=== PATIENT | female | born 1970 | race Asian ===

== ENCOUNTER 2019-10-19 06:17 | Inpatient (IN) | payer OTHER ==
[2019-10-15 11:19] VITALS: BMI 46.3
[2019-10-19] MEDS ORDERED: BUPIVACAINE HCL/PF 0.5% (5 MG/ML) 30 ML VIAL IJ ONE (07:11)
[2019-10-19] MEDS ORDERED: MIDAZOLAM HCL 2 MG/2 ML SINGLE DOSE VIAL ONE ×2 (07:11→07:27)
[2019-10-19] MEDS ORDERED: ROCURONIUM BROMIDE 50 MG/5 ML SYRINGE ONE ×2 (07:27→08:13)
[2019-10-19] MEDS ORDERED: KETOROLAC TROMETHAMINE 30 MG/1 ML VIAL ONE (07:27)
[2019-10-19] MEDS ORDERED: fentaNYL CITRATE 250 MCG/5 ML VIAL ONE (07:27)
[2019-10-19] MEDS ORDERED: SUCCINYLCHOLINE CHLORIDE 200 MG/10 ML SYRINGE ONE ×2 (07:27→08:18)
[2019-10-19] MEDS ORDERED: DEXAMETHASONE SOD PHOSPHATE 4 MG/1 ML VIAL ONE (07:27)
[2019-10-19] MEDS ORDERED: GLYCOPYRROLATE 0.2 MG/1 ML VIAL ONE (07:27)
[2019-10-19] MEDS ORDERED: ONDANSETRON 4 MG/2 ML VIAL ONE (07:27)
[2019-10-19] MEDS ORDERED: PROPOFOL 20 ML ONE ×2 (07:27→08:13)
[2019-10-19] MEDS ORDERED: NEOSTIGMINE METHYLSULFATE 0.5 MG/ML - 10 ML MDV ONE ×2 (07:27→09:13)
[2019-10-19] MEDS ORDERED: ceFAZolin SODIUM 1 GM VIAL ONE ×3 (07:28→09:13)
--- NOTE | 2019-10-19 07:55 | HP ---
Admitting History and Physical - Admission Chief Complaint: Morbid obesity History Source: Patient Limitations to Obtaining History: No Limitations - Past Medical History ...LMP Comment: EVERY 6 MONTHS - Smoking History Smoking history: Never smoked Have you smoked in the past 12 months: No - Alcohol/Substance Use Hx Alcohol Use: No - Social History ADL: Independent Home Medications - Allergies Allergies/Adverse Reactions: Allergies Allergy/AdvReac Type Severity Reaction Status Date / Time No Known Allergies Allergy Verified 10/15/19 11:07 - Home Medications Home Medications: Ambulatory Orders Docusate Sodium [Colace -] 100 mg PO TID #90 capsule 10/19/19 Famotidine [Pepcid] 20 mg PO BID #60 tablet 10/19/19 Ondansetron [Zofran -] 8 mg PO TID #30 tablet 10/19/19 Oxycodone HCl/Acetaminophen [Percocet 5-325 mg Tablet] 1 - 2 tab PO Q6H #28 tab MDD 4 10/19/19 Family Medical History Family History: Denies Review of Systems - Review of Systems Constitutional: denies: Chills, Fever HENT: reports: No Symptoms Neck: reports: No Symptoms Cardiovascular: reports: No Symptoms Respiratory: reports: No Symptoms Gastrointestinal: reports: No Symptoms Neurological: reports: No Symptoms Pain Intensity: 0 Physical Examination Vital Signs: Vital Signs Temperature 98.4 F 10/19/19 07:03 Pulse Rate 74 10/19/19 07:03 Respiratory Rate 18 10/19/19 07:03 Blood Pressure 135/80 10/19/19 07:03 O2 Sat by Pulse Oximetry (%) 97 10/19/19 07:05 Constitutional: Yes: Calm Eyes: Yes: WNL HENT: Yes: WNL Cardiovascular: Yes: WNL Respiratory: Yes: WNL Gastrointestinal: Yes: Soft, Abdomen, Obese Neurological: Yes: Alert, Oriented Problem List - Problems (1) Morbid obesity due to excess calories Code(s): E66.01 - MORBID (SEVERE) OBESITY DUE TO EXCESS CALORIES (2) BMI 45.0-49.9, adult Code(s): Z68.42 - BODY MASS INDEX (BMI) 45.0-49.9, ADULT Assessment/Plan Laparoscopic possible open vertical sleeve gastrectomy possible liver biopsy, upper endoscopy
[2019-10-19] MEDS ORDERED: BUPIVACAINE HCL/PF 0.5% (5MG/ML) 10 ML VIAL ONE ×2 (07:57)
[2019-10-19] MEDS ORDERED: BUPIVACAINE HCL/PF 0.5% (5MG/ML) 10 ML VIAL IJ ONE (08:52)
[2019-10-19] MEDS ORDERED: LIDOCAINE HCL 2% 100 MG/5 ML DISP.SYRIN ONE (09:13)
[2019-10-19] MEDS ORDERED: HYDROmorphone HCL CARPU-JECT 1 MG/1 ML DISP.SYRIN IVPB PRN (09:22)
--- NOTE | 2019-10-19 09:24 | OPR ---
Operative Note Operative Date: 10/19/19 Pre-Operative Diagnosis: Morbid obesity; BMI 46 Operation: 1. Diagnostic laparoscopy. 2. Laparoscopic vertical sleeve gastrectomy. 3. Laparoscopic wedge liver biopsy. 4. Laparoscopic oversewing of gastric staple line Post-Operative Diagnosis: Same as Pre-op (as well as hepatomegaly and oozing from gastric staple line) Surgeon: Junior [facility] Occupational Therapist: Wesley Shine Anesthesia: General Specimens Removed: Greater curvature of stomach. Liver biopsy. Estimated Blood Loss (mls): 30 Drains & Tubes with Location: 36 [address] Bougie Operative Report Dictated: Yes
[2019-10-19] MEDS ORDERED: ACETAMINOPHEN 1000 MG/100 ML VIAL (NON FORMULARY) IVPB SCH (09:30)
[2019-10-19] MEDS ORDERED: METOCLOPRAMIDE HCL INJECTION 10 MG/2 ML VIAL IVPUSH SCH (09:30)
[2019-10-19] MEDS ORDERED: SODIUM CHLORIDE 1,000 ML IV SCH (09:30)
[2019-10-19] MEDS ORDERED: PROMETHAZINE HCL 25 MG/1 ML VIAL IVPUSH PRN (09:45)
[2019-10-19] MEDS ORDERED: ONDANSETRON 4 MG/2 ML VIAL IVPUSH PRN (09:45)
[2019-10-19] MEDS ORDERED: oxyCODONE HCL 5 MG TABLET PO PRN (09:45)
[2019-10-19] MEDS ORDERED: FAMOTIDINE 20 MG/50 ML IVPB 20 MG/50 ML MG IVPB ONE (10:02)
[2019-10-19] MEDS ORDERED: FAMOTIDINE 20 MG PREMIXED IVPB IVPB ONE (10:05)
[2019-10-19 11:14] LABS: HEMATOCRIT 39.4 % (32.4-45.2); MCH 30.1 pg (25.7-33.7); MEAN CELL VOLUME 91.3 fl (80-96); PLATELET COUNT 336 K/MM3 (134-434); RBC 4.31 M/mm3 (3.60-5.2); RDW 13.3 % (11.6-15.6); WHITE BLOOD COUNT 9.6 K/mm3 (4.0-10.8)
[2019-10-19 11:16] LABS: ALBUMIN 3.8 g/dl (3.4-5.0); BILIRUBIN,TOTAL 0.7 mg/dl (0.2-1); CALCIUM 9.1 mg/dl (8.5-10); CREATININE 0.7 mg/dl (0.55-1.3); POTASSIUM 4.5 mmol/L (3.5-5.1); TOT PROT 7.6 g/dl (6.4-8.2)
[2019-10-19] MEDS: ONDANSETRON 4 MG/2 ML VIAL IVPUSH SCH ×3 (15:41→23:39)
[2019-10-19] MEDS ORDERED: ALBUTEROL SO4 0.083% IH SOL 2.5 MG/3 ML VIAL.NEB. NEB ONE (16:05)
[2019-10-19] MEDS: ACETAMINOPHEN 1000 MG/100 ML VIAL (NON FORMULARY) IVPB SCH ×2 (16:36→23:39)
[2019-10-19] MEDS: METOCLOPRAMIDE HCL INJECTION 10 MG/2 ML VIAL IVPUSH SCH ×2 (17:47→23:39)
[2019-10-19] MEDS: ENOXAPARIN NA (PORCINE) 40 MG/0.4 ML DISP.SYRIN SQ SCH (21:26)
[2019-10-19] MEDS: FAMOTIDINE 20 MG/50 ML IVPB 20 MG/50 ML MG IVPB SCH (21:27)
[2019-10-20] MEDS: ONDANSETRON 4 MG/2 ML VIAL IVPUSH SCH ×3 (03:00→10:15)
[2019-10-20] MEDS: METOCLOPRAMIDE HCL INJECTION 10 MG/2 ML VIAL IVPUSH SCH ×2 (04:50→10:15)
[2019-10-20] MEDS: ACETAMINOPHEN 1000 MG/100 ML VIAL (NON FORMULARY) IVPB SCH (04:51)
[2019-10-20 06:24] VITALS: TEMP 98.8
--- NOTE | 2019-10-20 07:39 | PN ---
Progress Note (short form) - Note Progress Note: POD #1 1. Diagnostic laparoscopy. 2. Laparoscopic vertical sleeve gastrectomy. 3. Laparoscopic wedge liver biopsy. 4. Laparoscopic oversewing of gastric staple line Patient seen and examined at bedside c/o pain but controlled by the pain medication. Patient has been ambulating to the bathroom and voiding. She denies and SOB, CP, N/V fever or chills. Vital Signs Temp 98.8 F 10/20/19 05:00 Pulse 71 10/20/19 05:00 Resp 17 10/20/19 05:00 BP 112/55 L 10/20/19 05:00 Pulse Ox 100 10/20/19 05:00 Intake & Output 10/19/19 10/19/19 10/20/19 11:59 23:59 11:59 Intake Total 800 450 Output Total 600 Balance 800 -150 Weight 270 lb Intake: IV 800 450 Normal Saline - 1,000 ml 450 @ 150 mls/hr IV ASDIR JAVID Rx#:[id number] Oral 0 Output: Urine 600 Void 600 Other: Voiding Method Toilet Height 5 ft 4 in Body Mass Index (BMI) 46.3 Weight Measurement Method Standing Scale CBC, BMP 10/19/19 09:40 10/19/19 09:40 PE: A&Ox3, NAD Unlabored resp on RA ABD: obese, soft, with diffuse TTP throughout appropriate to status. bandaids c/ d/i with surrounding tissue intact and no tracking erythema or active d/c. B/L LE compartments soft, supple and non-tender with +2 DP pulses. <Alanna White - Last Filed: 10/20/19 07:39> - Note Progress Note: Agree POD 1 No nausea AVSS Labs WNL UGI: noleak/obstruction Clears Discharge home <Junior Wright - Last Filed: 10/20/19 11:47> Problem List - Problems (1) BMI 45.0-49.9, adult Assessment/Plan: POD 1 Upper GI series this AM Pain control with Ofirmev 1g q6h, Morphine 4mg q4hrs prn DVT prophylaxis with Lovenox 40mg bid, b/l SCDS, b/l TEDS GI prophylaxis with Pepcid 20mg IV BID, Metoclopramide 10mg Iv q6hrs Zofran 4mg q4hrs prn n/v Remote tele/continuous pulse ox Monitor VS Monitor I&Os OOB ad sridevi Continue IVF Incentive spirometry Plan for d/c home tonight pending tolerating diet and UGI study Code(s): Z68.42 - BODY MASS INDEX (BMI) 45.0-49.9, ADULT (2) Hepatomegaly Code(s): R16.0 - HEPATOMEGALY, NOT ELSEWHERE CLASSIFIED (3) Morbid obesity due to excess calories Code(s): E66.01 - MORBID (SEVERE) OBESITY DUE TO EXCESS CALORIES <Alanna White - Last Filed: 10/20/19 07:39> - Problems (1) Morbid obesity due to excess calories Code(s): E66.01 - MORBID (SEVERE) OBESITY DUE TO EXCESS CALORIES (2) BMI 45.0-49.9, adult Code(s): Z68.42 - BODY MASS INDEX (BMI) 45.0-49.9, ADULT <Junior Wright - Last Filed: 10/20/19 11:47>
[2019-10-20 08:45] LABS: HEMATOCRIT 36.1 % (32.4-45.2); HEMOGLOBIN 11.8 GM/dl (10.7-15.3); MCH 29.8 pg (25.7-33.7); MCHC 32.8 g/dl (32.0-36.0); MEAN PLT VOLUME 8.6 fl (7.5-11.1); PLATELET COUNT 319 K/MM3 (134-434); RBC 3.97 M/mm3 (3.60-5.2); RDW 12.9 % (11.6-15.6); WHITE BLOOD COUNT 8.5 K/mm3 (4.0-10.8)
[2019-10-20 08:56] LABS: ALBUMIN 3.4 g/dl (3.4-5.0); BILIRUBIN,TOTAL 0.4 mg/dl (0.2-1); CALCIUM 8.3 mg/dl (8.5-10); CREATININE 0.6 mg/dl (0.55-1.3); POTASSIUM 4.1 mmol/L (3.5-5.1); TOT PROT 7.1 g/dl (6.4-8.2)
[2019-10-20] MEDS: FAMOTIDINE 20 MG/50 ML IVPB 20 MG/50 ML MG IVPB SCH (10:13)
[2019-10-20] MEDS: ENOXAPARIN NA (PORCINE) 40 MG/0.4 ML DISP.SYRIN SQ SCH (10:14)
[2019-10-20] MEDS ORDERED: oxyCODONE HCL 5 MG TABLET PO PRN ×3 (10:19→11:46)
[2019-10-20] MEDS ORDERED: SODIUM CHLORIDE 1,000 ML IV SCH ×2 (10:30→12:00)
[2019-10-20 14:44] VITALS: BP 120/53; PULSE 73
--- NOTE | 2019-10-23 12:53 | PATH ---
Surgical Pathology Report Patient Name: NOAH RENEE Med. Rec. #: [id number] /Age/Gender: 1970 (Age: 49) / F Account: [id number] Location: [facility] Taken: 10/19/2019 Received: 10/19/2019 Reported: 10/23/2019 Physicians: Junior Wright M.D. Specimen(s) Received A: UPPER CURVATURE STOMACH B: LIVER BIOPSY Clinical History Morbid obesity Final Diagnosis A. STOMACH, UPPER CURVATURE, LAPAROSCOPIC VERTICAL SLEEVE GASTRECTOMY: PORTION OF STOMACH WITH MILD CHRONIC GASTRITIS. IMMUNOHISTOCHEMICAL STAIN FOR H. PYLORI IS NEGATIVE. B. LIVER, BIOPSY: LIVER PARENCHYMA WITH MODERATE STEATOSIS (~60%). NO INCREASE IN IRON AND FIBROSIS ON PERFORMED SPECIAL STAINS (IRON AND TRICHROME). Electronically Signed Em Low M.D. Gross Description A. Received in formalin, labeled "upper curvature of stomach," is a 97 gram, 17.5 x 2.8 x 2.7 cm. portion of stomach with a stapled margin of resection. The serosa is muniz-mendez with minimal attached fat. The mucosa is muniz-pink with normal folds. No mucosal masses are identified. Material Handler Floorperson sections are submitted in one cassette. B. Received in formalin labeled "liver biopsy," is a 2.9 x 0.5 x 0.5 cm muniz, irregular portion of soft tissue, consistent with a portion of liver. The specimen is bisected and entirely submitted in one cassette. 10/20/2019 saudi10/20/2019
--- NOTE | 2019-10-23 19:00 | SPEC ---
DATE OF OPERATION: 10/19/2019 PLACE OF SERVICE: [facility], [address] [place] [address] SURGEON: Junior Wright MD MEAT BLENDER: Wesley Shine MD PREOPERATIVE DIAGNOSES: 1. Morbid obesity. 2. Body mass index of 46.3 POSTOPERATIVE DIAGNOSES: 1. Morbid obesity. 2. Body mass index of 46.3 3. Hepatomegaly. 4. Oozing from gastric staple line. PROCEDURE: 1. Diagnostic laparoscopy. 2. Laparoscopic vertical sleeve gastrectomy. 3. Laparoscopic wedge liver biopsy. 4. Laparoscopic over sewing of gastric staple line for oozing. SPECIMENS: 1. Greater curvature of the stomach. 2. Liver biopsy. ESTIMATED BLOOD LOSS: 30 mL. DRAINS: None. ANESTHESIA: GET. BOUGIE SIZE: 36-Thai. REASON FOR PROCEDURE: This is a 49-year-old female who presents for weight loss options. After describing different options, decided to proceed with laparoscopic, possible open, vertical sleeve gastrectomy, possible liver biopsy, upper endoscopy. The patient was seen by the respective subspecialties and cleared for surgery. The risks and benefits of the procedure were explained. These included bleeding, infection, hernia, OK, DVT, PE, injury to surrounding structures including the liver, colon, bowel, spleen, esophagus, vessel injury, nerve injury, weight regain, gastric leak, staple line leak, sleeve leak, obstruction, vitamin deficiency, hair loss and as some of the possible complications. The patient understood and signed informed consent. DESCRIPTION OF PROCEDURE: The patient was placed supine on the operating room table. The patient underwent general endotracheal intubation. The arms were brought out at 90 degrees and secured. A footboard was placed and the legs were secured laterally with padding. The abdomen was prepped and draped in the usual sterile fashion. A timeout was performed. An incision was made in the left upper quadrant and a Veress needle inserted. Pneumoperitoneum was established. Subsequently, the Veress needle was removed and a 5-mm trocar was placed under direct visualization with the laparoscope. The laparoscopic camera was then inserted and inspection of the abdominal cavity was performed. An incision was then made in the supraumbilical area and a 15-mm trocar was placed under direct visualization. A 5-mm trocar was then placed in the right upper quadrant and a 5-mm trocar was placed below the left subcostal margin. A stab wound was made in the subxiphoid area and a Genevieve clamp inserted and removed to dilate the tract. A Jordan liver retractor was inserted. The post was secured at the bedside by the nursing staff. The patient was placed in steep reverse Trendelenburg position and the Jordan liver retractor was used to secure the liver towards the anterior abdominal wall. The pylorus was identified and 6 cm proximal to it, the lesser sac was entered using the LigaSure device. All lateral attachments to the greater curvature of the stomach, including the short gastric vessels, were ligated using the LigaSure device toward the gastrosplenic and gastrophrenic ligaments. Once this was done in its entirety, it was confirmed that all tubes within the nasal or oropharyngeal cavity, including a temperature probe were removed by Anesthesia. The bougie was then inserted by Anesthesia. Transection of the stomach was then begun staying adjacent to the bougie but away from the angularis. Transection of the stomach was performed near the portion of the stomach where the lesser sac was entered. Two laparoscopic Endo-LONNIE black samuel were used at this location. Laparoscopic Endo LONNIE purple staple loads were then used for the remainder of the transection until the greater curvature of the stomach was fully transected. This was done staying close to the bougie. Care was taken to stay away from the angle of His cephalad. The staple line was then inspected. Hemostasis was identified. A leak test was then performed. It was clamped distally to the staple line. Irrigation solution was placed in the left upper quadrant and air was insufflated by Anesthesia into the sleeve. No leaks were identified. No obstruction was identified. This was done through the entirety of the staple line. The stomach was suctioned and the bougie removed fully intact under direct visualization. At this point, the irrigation solution was suctioned and again, hemostasis was noted. A wedge liver biopsy was then performed. The left lobe of the liver was identified. A portion of the edge of the left lobe of the liver was grasped. Using electrocautery, a wedge of the left liver was excised. The specimen was removed and sent off the field. Hemostasis of the wedge liver biopsy site was attained and noted using electrocautery. The 15-mm supraumbilical trocar was then removed and the greater curvature specimen removed from the site using a sponge stick trejo. A Sudhir-Christopher device was then used to close the fascia with a 0 Vicryl suture at the site. Again, hemostasis was noted. The Jordan liver retractor was then removed under direct visualization. Pneumoperitoneum was desufflated. Hemostasis was noted at all incision sites and Marcaine was injected at all incision sites. A 3-0 Vicryl suture was used to close the deep subcutaneous tissue at the 15-mm incision site. All incision sites were closed using 4-0 Biosyn. Because of oozing at the gastric staple line, several areas needed to be over sewn with an Endo Stitch device with a Surgitek suture. Hemostasis was noted. Sterile dressings were applied. The patient tolerated the procedure well and was transferred to the recovery room in stable condition. Joel BLUNT/[id number]
== END 2019-10-20 13:00 | disposition home or self-care (01) | DRG 403 ==
LOC: FM/S 06:17
PROVIDERS: ADMIT Surgery; ATTEND Surgery
PROC: 0DJ04ZZ Inspection of Upper Intestinal Tract, Percutaneous Endoscopic Approach (ICD-10-PCS; 2019-10-19)
PROC: 0DB64Z3 Excision of Stomach, Percutaneous Endoscopic Approach, Vertical (ICD-10-PCS; principal; 2019-10-19 08:00)
PROC: 0FB24ZX Excision of Left Lobe Liver, Percutaneous Endoscopic Approach, Diagnostic (ICD-10-PCS; 2019-10-19 08:00)
DX: E66.01 Morbid (severe) obesity due to excess calories (principal); Z68.42 Body mass index [BMI] 45.0-49.9, adult; R16.0 Hepatomegaly, not elsewhere classified
CPT/HCPCS: 36415; 74241-TC-FY; 80053; 84703; 85027; 88305-TC; 94760; J0131; J7030; Q9967

== ENCOUNTER → 2020-10-03 | Day surgery (SDC) | payer OTHER | END | disposition home or self-care (01) | LOC: JRADIR 09:48 | PROVIDERS: ATTEND Family Medicine | PROC: 0G9G3ZX Drainage of Left Thyroid Gland Lobe, Percutaneous Approach, Diagnostic (ICD-10-PCS; principal; 2020-10-03) | DX: E04.1 Nontoxic single thyroid nodule (principal) | CPT/HCPCS: 76942; 88173; 88305-TC ==

== ENCOUNTER → 2024-03-04 | Day surgery (SDC) | payer OTHER | END | disposition home or self-care (01) | LOC: JRADIR 09:45 | PROVIDERS: ATTEND Internal Medicine Endocrinology, Diabetes & Metabolism | PROC: 0G9H3ZX Drainage of Right Thyroid Gland Lobe, Percutaneous Approach, Diagnostic (ICD-10-PCS; principal; 2024-03-04) | DX: E04.1 Nontoxic single thyroid nodule (principal) | CPT/HCPCS: 10005; 76942; 88173; 88305-TC ==